=== PATIENT | female | born 1970 | race Caucasian/White ===

== ENCOUNTER → 2016-05-29 16:23 | Outpatient (CLI) | payer BC | END | disposition home or self-care (01) | LOC: D.MAMMO 10:30 | DX: Z12.31 Encounter for screening mammogram for malignant neoplasm of breast (principal) ==

== ENCOUNTER → 2017-01-20 09:55 | Outpatient (CLI) | payer MEDICAID | END | disposition home or self-care (01) | LOC: D.MRI 09:30 | DX: M54.12 Radiculopathy, cervical region (principal) ==

== ENCOUNTER → 2017-04-04 08:17 | Outpatient (CLI) | payer MEDICAID | END | disposition home or self-care (01) | LOC: D.CT 08:17 | DX: R10.32 Left lower quadrant pain (principal) ==

== ENCOUNTER → 2017-07-02 19:26 | Outpatient (CLI) | payer MEDICAID | END | disposition home or self-care (01) | LOC: D.MAMMO 11:15 | DX: Z12.31 Encounter for screening mammogram for malignant neoplasm of breast (principal) ==

== ENCOUNTER 2017-11-11 08:00 | Day surgery (SDC) | payer MEDICAID ==
[2017-11-10 11:56] LABS: HEMATOCRIT 38.7 % (36.0-48.0); MCH 31.7 pg (26.0-34.0); MCHC 33.6 g/dL (31.0-37.0); MCV 94.4 fL (80.0-100.0); MEAN PLATELET VOLUME 10.6 fL (7.4-10.4); RBC 4.1 10x6/uL (4.00-5.40); RDW 13.3 % (11.5-14.5)
[2017-11-11] VITALS (16 sets, daily range): BP systolic 89–135; BP diastolic 47–100; Ht 147.3 cm; Wt 68.2 kg
[~2017-11-11] VITALS: Ht 147.3 cm; Wt 68.2 kg
--- NOTE | ~2017-11-11 | OP ---
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 PROCEDURE: Anterior cervical discectomy and fusion at C5-C6 and C6-C7 with separate anterior cervical plate and screws, PEEK interbody cages, and Neeru bone allograft. SURGEON: Dayo Mota MD DESCRIPTION AND TECHNIQUE: After induction of general endotracheal anesthesia, the patient was positioned supine on the operating table. Neck was prepped and draped in usual sterile fashion. Fluoroscopic x-ray and the freer dissector localized the C5-C6 interspace. A 1% lidocaine with 1:100,000 epinephrine was infiltrated in the subcutaneous tissues. A transverse skin incision was carried out from the midline to the sternocleidomastoid muscle. The platysma was divided with Bovie cautery. Using blunt and sharp dissection with Metzenbaum scissors, I proceeded in avascular plane medial to the carotid sheath. The C5-C6 and C6-C7 interspaces were identified with fluoroscopic x-ray and a spinal needle. Longus colli muscles were elevated from bodies of C5, C6 and C7. Osteophytes were removed anteriorly with Adson rongeurs at C5-C6 and C6-C7. [place] distracting pins were placed in the bodies of C5, C6 and C7. Disc space was incised at each level. Disc material was removed with pituitary rongeurs. Posteriorly osteophytes were removed with Midas-Joseph drill and microscopic illumination. The posterior longitudinal ligament was removed with Cloward rongeurs. A PEEK interbody cage was placed in the disc space under distraction. Prior to this, the bony endplates were repaired with curettes. Each PEEK cage was filled with bone stem cells. A separate anterior cervical plate and screws was used to span the C5-C6 and C6-C7 interspaces. Separate screws were placed through the holes in the plate. Locking cam was tightened down over screw heads. Good position of the hardware was confirmed with fluoroscopic x-ray. Meticulous hemostasis was maintained throughout the wound. The wound was irrigated with copious amounts of Ancef irrigant solution. The platysma was closed with interrupted 3-0 Vicryl suture. The subdermal layer was closed with 3-0 Vicryl suture. The skin was reapproximated with Steri-Strips and benzoin. A sterile dressing was applied to the wound. The patient was awakened in good condition and taken to recovery. All counts were reported as correct. Estimated blood loss was minimal. TRANSINT:[id number] Voice Confirmation ID: [id number] DOCUMENT ID: [id number] OPERATIVE REPORT [id number] MARTITA,DAYO DEGROOT MD at 1933 CC: [id number] DICTATION DATE: 11/11/17 1326 HEEL COVERER: 11/11/17 1411 [facility] 11/12/17 [place] [id number] [place] [address]
[~2017-11-11 08:00] MED LIST: BACLOFEN10 MG PO; MICRONOR0.35 MG PO; NAPROSYN500 MG PO; PEPCID20 MG PO; PRAVACHOL40 MG PO; PRED-FORTE 1% OP5 ML EACH EYE; TYLENOL W/CODEI1 TAB PO; VITAMIN D250000 UNIT PO
[2017-11-12] VITALS (8 sets, daily range): BP systolic 81–144; BP diastolic 46–76
== END 2017-11-12 09:30 | disposition home or self-care (01) ==
LOC: D.ICU 08:00 → D.OPS 08:00 → D.PAN 08:30 → D.OPS 10:00 → D.PAN 10:00 → D.ICU 14:18 → D.OPS 11-12 09:30
PROVIDERS: Anesthesiology
DX: M25.78 Osteophyte, vertebrae (principal); M50.022 Cervical disc disorder at C5-C6 level with myelopathy; M50.122 Cervical disc disorder at C5-C6 level with radiculopathy; Z01.812 Encounter for preprocedural laboratory examination

== ENCOUNTER 2017-11-14 13:26 | Inpatient (IN) | payer MEDICAID ==
[~2017-11-14] VITALS: Ht 147.3 cm; Wt 65.8 kg
--- NOTE | ~2017-11-14 | OP ---
PATIENT NAME: NINA ANDERS MEDICAL RECORD: [id number] :68 LOCATION:.[facility] D.[id number] ADMISSION DATE:11/14/17 SURGEON: DAYO MOTA MD DATE OF OPERATION: 11/15/2017 PREOPERATIVE DIAGNOSIS: CSF leak from anterior cervical wound. POSTOPERATIVE DIAGNOSIS: CSF leak from anterior cervical wound. PROCEDURES: 1. Lumbar external drain. 2. Wound exploration. SURGEON: Dayo Mota MD DESCRIPTION OF TECHNIQUE: After induction of general endotracheal anesthesia, the patient was positioned on a left lateral decubitus position with flexion of the hips. After sterile prep and drape of the neck and lumbar spine, a 12-gauge Tuohy needle was advanced into the interspace at approximately L2-3. There was brisk egress of CSF from the Tuohy needle after removal of the inner cannula. A lumbar external drain was threaded cephalad through the Tuohy needle. There was good return of CSF from the external drain catheter. The Tuohy needle was removed without event. The external drain catheter was then bandaged and brought up to the right lateral flank. It was then attached to external monometer. Next, attention was turned to the cervical wound. The wound was opened with Metzenbaum scissors. There was obvious CSF leak from the wound. The wound was opened and irrigated with copious amounts of Ancef irrigant solution. The hardware was intact. The platysma and subdermal layer were reapproximated with interrupted 3-0 Vicryl suture. The skin was reapproximated with a Prineo dressing using Dermabond. All counts were reported as correct. The patient was awakened in good condition and taken to recovery and tolerated the procedure well. Estimated blood loss was minimal. TRANSINT:[id number] Voice Confirmation ID: [id number] DOCUMENT ID: [id number] DAYO MOTA MD CC: [id number] DICTATION DATE: 12/12/17 1019 ACTUARIAL CONSULTANT: 12/12/17 1212 [facility] IN 11/21/17 [place] [id number]
[2017-11-14] MEDS ORDERED: HYDROCODONE-APA1 TAB PO (14:06)
[2017-11-14] MEDS ORDERED: BEPREVE10 ML LEFT EYE (14:07)
[2017-11-14 17:17] VITALS: BP 154/90; BMI 30.3
[2017-11-14 20:00] VITALS: BP 131/75
[2017-11-15] VITALS (17 sets, daily range): BP systolic 101–152; BP diastolic 60–89
[2017-11-15 01:02] LABS: BASOPHILS 0.3 % (0-2); EOSINOPHILS 0 % (0-7); HEMATOCRIT 34.9 % (36.0-48.0); HEMOGLOBIN 11.3 g/dL (12-16); IMMATURE GRANULOCYTES 0.3 % (0-5); LYMPHOCYTES 15.4 % (15-50); MCH 31.5 pg (26.0-34.0); MCHC 32.4 g/dL (31.0-37.0); MCV 97.2 fL (80.0-100.0); MONOCYTES 5.7 % (2-11); NEUTROPHILS 78.3 % (40-80); PLATELET COUNT 299 10x3/uL (130-400); RBC 3.59 10x6/uL (4.00-5.40); RDW 13.4 % (11.5-14.5); WBC 11.5 10x3/uL (4.8-10.8)
[2017-11-15 01:44] LABS: ANION GAP 13.4 mmol/L (8-16); BILIRUBIN - TOTAL 0.25 mg/dL (0.2-1.3); CALCIUM 8.8 mg/dL (8.5-10.1); CARBON DIOXIDE 26.6 mmol/L (21.0-32.0); CREATININE - SERUM 0.9 mg/dL (0.6-1.3); PROTEIN - SERUM 7.9 g/dL (6.4-8.2)
[2017-11-16] VITALS (25 sets, daily range): BP systolic 100–139; BP diastolic 43–96
[2017-11-16 09:08] LABS: CALC OSMOLALITY 273 mosm/kg (275-300); CALCIUM 8.6 mg/dL (8.5-10.1); CARBON DIOXIDE 28.7 mmol/L (21.0-32.0); CHLORIDE - SERUM 104 mmol/L (98-107); CREATININE - SERUM 0.7 mg/dL (0.6-1.3); POTASSIUM - SERUM 3.8 mmol/L (3.5-5.1); SODIUM 137 mmol/L (136-145); UREA NITROGEN 10 mg/dL (7-18); eGFR NON AFRICAN AMERICAN > 90 mL/min (90-120)
[2017-11-16 09:11] LABS: BASOPHILS 0.3 % (0-2); EOSINOPHILS 2.8 % (0-7); HEMATOCRIT 34.8 % (36.0-48.0); HEMOGLOBIN 11.4 g/dL (12-16); IMMATURE GRANULOCYTES 0.1 % (0-5); LYMPHOCYTES 27.7 % (15-50); MCH 31.6 pg (26.0-34.0); MCHC 32.8 g/dL (31.0-37.0); MCV 96.4 fL (80.0-100.0); MEAN PLATELET VOLUME 10.8 fL (7.4-10.4); MONOCYTES 5.2 % (2-11); NEUTROPHILS 63.9 % (40-80); PLATELET COUNT 266 10x3/uL (130-400); RBC 3.61 10x6/uL (4.00-5.40); RDW 13.1 % (11.5-14.5); WBC 9.2 10x3/uL (4.8-10.8)
[2017-11-16 09:23] LABS: GLUCOSE 108 mg/dL (74-106)
[2017-11-17] VITALS (23 sets, daily range): BP systolic 010–164; BP diastolic 60–94; Ht 147.3 cm; Wt 65.8 kg
[2017-11-18] VITALS (25 sets, daily range): BP systolic 84–142; BP diastolic 48–92
[2017-11-19] VITALS (25 sets, daily range): BP systolic 91–138; BP diastolic 52–95
[2017-11-20] VITALS (12 sets, daily range): BP systolic 105–135; BP diastolic 57–91
[2017-11-21 03:00] VITALS: BP 136/82
[2017-11-21 08:46] LABS: ANION GAP 10.9 mmol/L (8-16); CALCIUM 8.3 mg/dL (8.5-10.1); CARBON DIOXIDE 23.7 mmol/L (21.0-32.0); POTASSIUM - SERUM 3.6 mmol/L (3.5-5.1)
[2017-11-21 15:00] VITALS: BP 134/72
== END 2017-11-21 17:01 | disposition home or self-care (01) | DRG 981 ==
LOC: D.ER 13:26 → D.ICU 16:37 → D.MS 16:37 → D.ICU 11-15 14:04
PROVIDERS: Neurological Surgery
PROC: 0Q9 Lower Bones, Drainage (ICD-10-PCS; principal; 2017-11-14)
DX: G97.82 Other postprocedural complications and disorders of nervous system (principal); B20 Human immunodeficiency virus [HIV] disease; G96.0 Cerebrospinal fluid leak; M54.12 Radiculopathy, cervical region; K21.9 Gastro-esophageal reflux disease without esophagitis; F17.200 Nicotine dependence, unspecified, uncomplicated; R51 Headache; Z98.1 Arthrodesis status; Y83.8 Other surgical procedures as the cause of abnormal reaction of the patient, or of later complication, without mention of misadventure at the time of the procedure

== ENCOUNTER → 2019-03-09 13:43 | Outpatient (CLI) | payer MEDICAID ==
[2017-11-17 09:47] VITALS: BMI 30.3
[~2019-03-09 13:43] MED LIST changes: +BEPREVE10 ML LEFT EYE; +HYDROCODONE-APA1 TAB PO
--- NOTE | 2019-03-18 11:25 | EC ---
PATIENT:NINA ANDERS DATE OF SERVICE: 03/09/19 SEX: F MEDICAL RECORD: [id number] DATE OF : [birth year] [facility] AGE OF PATIENT: 48 ADMISSION DATE: 03/09/19 REFERRING PHYSICIAN: INTERPRETING PHYSICIAN: ALEXSANDRA PATEL MD ECHOCARDIOGRAM REPORT ECHO CHARGES 4 ECHO COMPLETE Date: 03/09/19 CLINICAL DIAGNOSIS: CHEST PAIN ECHOCARDIOGRAPHIC MEASUREMENTS (adult normal given) AC root (d.<3.7cm) 2.8 cm LV Septum d (<1.2 cm> 1.0 cm Valve Excursion 1.4 cm LV Septum (systole) 1.3 cm Left Atria (s.<4.0cm> 3.1 cm LVPW d(<1.2cm) 1.2 cm RV (d.<2.3cm) 2.2 cm LVPW (sytole) 1.3 cm LV diastole(<5.6CM) 4.5 cm MV E-F(>70mm/sec) cm LV systole 3.1 cm LVOT Diameter 1.6 cm MV exc.(>10mm) 1.5 cm Est.ejection fraction (50-75%) % DOPPLER: LVIT cm/sec A 77.0 cm/sec E 104.0 cm/sec LA cm/sec RVSP 26 mmHg LVOT 118 cm/sec AOP1/2T m/s Asc. Ao 162 cm/sec RVOT 77 cm/sec RA cm/sec PA 104 cm/sec AV Gradient Peak 10.48mmHg AV Mean 5.44 mmHg AV Area 1.5 cm MV Gradient Peak 6.42 mmHg MV Mean 2.26 mmHg MV Area cm COMMENTS: Assistant Credit Manager: 2 EVANS AVELAR Senior Security Analyst: 3 Dr. Verdugo TAPE# PACS Pericardial Effusion N DATE OF SERVICE: ECHOCARDIOGRAM Adequate 2D, color flow imaging, spectral Doppler, and M-Mode No LVH. LV internal dimension is normal. Wall motion is normal. EF is greater than or equal to 55%. Aortic valve is tricuspid. No evidence of stenosis by Doppler interrogation. Left atrium is normal at 3.1 cm. Mitral valve shows no prolapse. Trace MR. Right-sided chambers are grossly normal. Trace TR. ECHOCARDIOGRAM REPORT [id number] NINA ANDERS TRANSINT:[id number] Voice Confirmation ID: [id number] DOCUMENT ID: [id number] ALEXSANDRA PATEL MD at 1125 CC: [id number] DICTATION DATE: 03/11/19 1227 WANT AD RECEIVER: 03/11/19 1426 DEP CLI 03/09/19 [place] [id number] [place] [id number]
--- NOTE | 2019-03-18 11:25 | ST ---
PATIENT:NINA ANDERS MEDICAL RECORD: [id number] SEX: F LOCATION:[facility] ORDER #: ADMISSION DATE: 03/09/19 AGE OF PATIENT: 48 REFERRING PHYSICIAN: INTERPRETING PHYSICIAN: ALEXSANDRA PATEL MD DATE OF SERVICE: 03/09/2019 PROCEDURE: Treadmill stress test. TECHNIQUE: Baseline ECG is normal. Exercised for 6 minutes on Woo protocol, maximum heart rate of 149 beats per minute, greater than 85% max predicted. No ECG changes of ischemia. No symptoms of ischemia. Normal blood pressure response to exercise. No arrhythmias noted. Fair exercise tolerance for age. TRANSINT:[id number] Voice Confirmation ID: [id number] DOCUMENT ID: [id number] ALEXSANDRA PATEL MD at 1125 CC: [id number] DICTATION DATE: 03/11/19 1225 LOAN TELLER: 03/11/19 1424 DEP CLI 03/09/19 [place] [id number] [place] [address]
== END | disposition home or self-care (01) ==
LOC: D.HCCECHO 13:43
PROVIDERS: ATTEND Internal Medicine Interventional Cardiology
DX: R07.9 Chest pain, unspecified (principal); R01.1 Cardiac murmur, unspecified